=== PATIENT | male | born 1950 | race Hispanic/Latino ===

== ENCOUNTER 2017-07-18 06:50 | Day surgery (SDC) | payer MEDICARE, OTHER ==
[2017-07-18 07:34] LABS: Basophils # (Auto) 0.1 K/mm3 (0.0-0.1); Basophils % (Auto) 1.2 % (0.0-1.8); Eosinophils # (Auto) 0.3 K/mm3 (0.0-0.4); Eosinophils % (Auto) 3.4 % (0.0-4.3); Hematocrit 52.2 % (35.5-45.6); Hemoglobin 17.2 gm/dl (11.8-15.2); Lymphocytes # (Auto) 2.4 K/mm3 (1.2-5.4); Lymphocytes % (Auto) 29.7 % (13.4-35.0); Mean Corpuscular HGB Conc 33 % (32-34); Mean Corpuscular Hemoglobin 28 pg (28-32); Mean Corpuscular Volume 85 fl (84-94); Monocytes # (Auto) 0.7 K/mm3 (0.0-0.8); Monocytes % (Auto) 9.1 % (0.0-7.3); Platelet Count 263 K/mm3 (140-440); Red Blood Count 6.12 M/mm3 (3.65-5.03); Red Cell Distribution Width 13.4 % (13.2-15.2)
[2017-07-18 07:48] LABS: INR 0.87 (0.87-1.13)
[2017-07-18 07:52] LABS: BUN/Creatinine Ratio 14; Blood Urea Nitrogen 14 mg/dL (9-20); Calcium 9.1 mg/dL (8.4-10.2); Hemolysis Index 15
[2017-07-18] MEDS ORDERED: NACL 0.9% 500 ML 500 ML IV SCH (08:00)
[2017-07-18] MEDS ORDERED: HEPARIN/NS 5000 UNIT/500ML(CATH LAB) 1,000 ML IR ONE (08:41)
[2017-07-18] MEDS: SUBLIMAZE ONE ×2 (09:24→09:28)
[2017-07-18] MEDS: VERSED ONE ×2 (09:24→09:28)
[2017-07-18] MEDS: XYLOCAINE 2% INFILTRATI ONE ×2 (09:27→09:28)
--- NOTE | 2017-07-18 11:52 | Cardiac Catherization Report ---
The patient is a 66-year-old white gentleman with known history of coronary artery disease, underwent intervention of the mid RCA lesion with an endeavor 3.5 x 12 mm stent on 01/29/2010. Subsequently, underwent robotic left internal mammary graft to the LAD on 04/14/[address] Tashi Henson. Presently, the patient is not very active, gets short of breath with [id number] exertion and has a Lexiscan nuclear imaging performed on 07/14/2017, which showed a moderate size reversible anteroapical defect of moderate severity and moderate sized mild reversible proximal septal perfusion defect. Dilated LV with ejection fraction of 35-38% noted. Presently, the patient was brought to the catheterization laboratory for diagnostic purposes. The patient is aware of the procedure, potential complications and alternatives of therapy available. DESCRIPTION OF PROCEDURE: The patient was brought to the catheterization laboratory in a fasting condition. Right groin area is thoroughly cleansed with Betadine solution. Sterile drapes were applied. Local anesthesia was achieved using 2% Xylocaine. Right femoral artery puncture was made using 5-[place] micropuncture needle. Subsequently, 5-[place] sheath was introduced. A 5-[place] multipurpose catheter was used to obtain the angiograms of the left coronary artery in multiple views followed by 5-[place] JR4 catheter to obtain d angiograms of the right coronary artery and angiograms of the left internal mammary graft with the JR4 catheter. Subsequently, left ventriculogram was performed using power injector 30 mL at 10 mL per second. At the end of the procedure, catheter and sheath removed. Good hemostasis was achieved with pressure bandage. Following findings were noted. HEMODYNAMICS: 1. Opening aortic pressure 152/72. Left ventricular pressure 150/27. No gradient across the aortic valve. Estimated ejection fraction 35-40%. 2. Left ventriculogram done in CERVANTES projection using power injector showed dilated left ventricle with marked hypokinesis of the inferior wall and mild hypokinesis of the anterior wall. Overall, ejection fraction is mild to moderately impaired in the range of 35-40%. Left ventricular function is moderately impaired in the range of 35-40%. No significant mitral regurgitation noted. 3. Right coronary artery was described as codominant vessel in the past. Presently appears to be patent stent in the mid part. PDA is not visualized, may be filling retrograde on injection of the mammary graft. This shows moderate diffuse disease. 4. Left coronary artery, left main is long, smooth without significant disease. LAD 100% occluded at the ostium. No visualization on LCA injection. However, circumflex artery dominant vessel gives rise to multiple large sized marginal branches shows severe eccentric 80% or so lesion near the ostium. Distal vessel showed only mild disease. 5. Collaterals were noted to the PDA on injection of the mammary graft. 6. Left internal mammary to the distal LAD is widely patent. Distal LAD itself without significant disease. FINAL IMPRESSION: Patent stent in the codominant or nondominant RCA in the mid part and patent left internal mammary to the LAD. However, circumflex artery huge vessel has severe tight stenosis near the ostium. Distal vessels are large vessels supplying large area of myocardium. The patient has underlying moderate LV dysfunction. At this time, the patient is on appropriate medical therapy including Lopressor and Norvasc. Considering the above symptoms, would recommend intervention of the large circumflex artery. However, would prefer it to be done at a tertiary care center because of the size of the vessel and the LV dysfunction. The patient tolerated the procedure well. No untoward complications were noted. The patient was sedated with IV Versed and fentanyl after evaluating for appropriateness for moderate sedation. He was felt patient is appropriate and received IV Versed and fentanyl around 9:21 a.m. and he was monitored electrocardiographically and with noninvasive blood pressure monitoring and pulse oximetry up to 9:48 a.m. The patient at the end of procedure is stable. Able to communicate well, oriented x 3 and comfortable with stable vital signs. The patient was transferred to the outpatient area in stable condition. Intervention of the circumflex artery will be arranged as an outpatient. He will be continued on medical therapy. JOB# [id number] LAILA/PRINCE
[2017-07-18 13:13] VITALS: BP 127/80
== END 2017-07-18 14:00 | disposition home or self-care (01) ==
LOC: CATHLABREC 06:50
PROVIDERS: ATTEND Internal Medicine
DX: I25.10 Atherosclerotic heart disease of native coronary artery without angina pectoris (principal); I10 Essential (primary) hypertension; I34.0 Nonrheumatic mitral (valve) insufficiency; I36.1 Nonrheumatic tricuspid (valve) insufficiency; E78.5 Hyperlipidemia, unspecified; Z95.5 Presence of coronary angioplasty implant and graft; Z79.01 Long term (current) use of anticoagulants; Z79.84 Long term (current) use of oral hypoglycemic drugs; Z88.8 Allergy status to other drugs, medicaments and biological substances
CPT/HCPCS: 36415; 80048; 85025; 85610; 85730; 93005; 93010; 93459; 99156; 99157; J1644; J2250; J3010; J7040; Q9967